=== PATIENT | female | born 1985 | race Caucasian/White ===

== ENCOUNTER 2017-04-30 23:05 | Emergency (ER) | payer OTHER ==
[~2017-04-30] VITALS: Ht 172.7 cm; Wt 88.8 kg
[~2017-04-30 23:05] MED LIST: ANAPROX DS550 M1 PO; AUGMENTIN875 MG PO; BACTRIM,SEPT1 TABLET PO; CARAFATE100 MG/ML PO; CATAPRES0.1 MG PO; CATAPRES0.2 MG PO; DOXYCYCLINE HY100 MG PO; HYDROCODON-ACE1 EAC7 PO; Habitrol,Nicoderm CQ TD; IMODIUM A-D2 MG PO; LEXAPRO10 MG; LEXAPRO10 MG PO; METHADONE HCL40 MG PO; MOTRIN600 MG PO; MOTRIN800 MG PO; NAPROSYN500 MG PO; NAPROXEN500 MG PO; NITROFURANTOIN100 MG PO; NORCO 5/3251 TABLET PO; PAROXETINE HCL10 MG PO; PEN-VEE K,VEET500 MG PO; PERCOCET 5-3251 EACH PO; PROZAC40 MG PO; ROBITUSSIN AC,T10 ML PO; TAMIFLU75 MG PO; TRAMADOL HCL50 MG PO; TRAZODONE HCL150 MG PO; XANAX0.25 MG PO; Xanax PO; ZITHROMAX Z-PA250 MG PO; ZOFRAN4 MG PO
[2017-05-01 00:14] LABS: HEMATOCRIT 40.1 % (36.0-46.0); MCH 27.8 PG (29.0-34.0); MCHC 32.7 G/DL (30.0-36.0); MEAN PLAT.VOLUME 10.1 uM^3 (9.5-12.4); PLATELET COUNT 170 K/uL (156-360); RBC DIS.WIDTH-CV 13.8 % (11.8-14.6); RBC DIS.WIDTH-SD 42.7 % (39-53); RED BLOOD COUNT 4.72 M/uL (3.80-5.20); WHITE BLOOD COUNT 7.2 K/uL (4.1-10.2)
[2017-05-01 00:22] LABS: CHLORIDE 105 mEq/L (99-109); SODIUM 139 mEq/L (136-147)
[2017-05-01 00:24] LABS: GLUCOSE 130 mg/dL (70-99)
[2017-05-01 00:25] LABS: ANION GAP 12 MEQ/L (2-14)
[2017-05-01 00:26] LABS: TOTAL BILIRUBIN 0.8 mg/dL (0.0-1.0)
[2017-05-01 00:28] LABS: ALKALINE PHOSPHATASE 97 IU/L (3-129); GFR ESTIMATE (CALCULATED) > 59 mL/min/
[2017-05-01 00:29] LABS: UREA NITROGEN (BUN) 6 mg/dL (9-23)
[2017-05-01] MEDS ORDERED: CLEOCIN300 MG PO (01:38)
[2017-05-01 01:41] LABS: QUANTITATIVE HCG < 4.0 MIU/ML
[2017-05-01 01:59] VITALS: BP 114/73
== END 2017-05-01 02:04 | disposition home or self-care (01) ==
LOC: EME 23:05
DX: L03.116 Cellulitis of left lower limb (principal); F31.9 Bipolar disorder, unspecified; F17.200 Nicotine dependence, unspecified, uncomplicated; Z88.5 Allergy status to narcotic agent; Z88.1 Allergy status to other antibiotic agents
CPT/HCPCS: 73590; 80053; 83605; 84702; 85027; 87070; 87075; 87076; 87077; 87147; 87186; 87205; 99281; 99285

== ENCOUNTER 2017-05-07 23:53 | Emergency (ER) | payer OTHER ==
[~2017-05-07] VITALS: Ht 167.6 cm; Wt 89.1 kg
[~2017-05-07 23:53] MED LIST changes: +CLEOCIN300 MG PO
[2017-05-08] MEDS ORDERED: BACTRIM,SEPT1 TABLET PO (01:53)
[2017-05-08 02:30] VITALS: BP 129/78
== END 2017-05-08 02:31 | disposition home or self-care (01) ==
LOC: EME 23:53
DX: L02.416 Cutaneous abscess of left lower limb (principal); F31.9 Bipolar disorder, unspecified; Z87.19 Personal history of other diseases of the digestive system; F17.200 Nicotine dependence, unspecified, uncomplicated; Z88.1 Allergy status to other antibiotic agents; Z88.5 Allergy status to narcotic agent
CPT/HCPCS: 99281; 99284

== ENCOUNTER 2017-07-06 11:51 | Emergency (ER) | payer OTHER ==
[~2017-07-06] VITALS: Ht 172.7 cm; Wt 86.6 kg
[2017-07-06 14:21] LABS: BASOPHIL (%) 0.3 % (0-1); EOSINOPHIL (%) 0.3 % (0-5); HEMATOCRIT 37.4 % (36.0-46.0); HEMOGLOBIN 12.7 G/DL (11.9-15.5); IMMATURE GRANULOCYTE (%) 0.3 % (0.0-0.7); LYMPHOCYTE (%) 16.4 % (15-42); LYMPHOCYTE COUNT 1.2 K/uL (1.0-2.8); MCH 29.1 PG (29.0-34.0); MCV 85.6 FL (83-99); MONOCYTE (%) 5.2 % (3-12); MONOCYTE COUNT 0.4 K/uL (0-0.8); NEUTROPHIL (%) 77.5 % (45-76); NEUTROPHIL COUNT 5.8 K/uL (1.8-6.4); PLATELET COUNT 168 K/uL (156-360); RBC DIS.WIDTH-CV 13.5 % (11.8-14.6); RBC DIS.WIDTH-SD 42.5 % (39-53); RED BLOOD COUNT 4.37 M/uL (3.80-5.20); WHITE BLOOD COUNT 7.5 K/uL (4.1-10.2)
[2017-07-06 14:35] LABS: ALBUMIN 3.9 g/dL (3.2-4.8)
[2017-07-06 14:36] LABS: CHLORIDE 107 mEq/L (99-109); POTASSIUM 3.6 mEq/L (3.7-5.4); SODIUM 137 mEq/L (136-147)
[2017-07-06 14:38] LABS: GLUCOSE 93 mg/dL (70-99); TOTAL PROTEIN 7.2 g/dL (6.4-8.3)
[2017-07-06 14:40] LABS: TOTAL BILIRUBIN 0.7 mg/dL (0.0-1.0)
[2017-07-06 14:41] LABS: ALKALINE PHOSPHATASE 121 IU/L (3-129)
[2017-07-06 14:42] LABS: CREATININE 0.6 mg/dL (0.6-1.3); GFR ESTIMATE (CALCULATED) > 59 mL/min/
[2017-07-06 14:43] LABS: AST (GOT) 13 IU/L (2-34); UREA NITROGEN (BUN) 6 mg/dL (9-23)
[2017-07-06 14:45] LABS: ALT (GPT) 12 IU/L (3-49)
[2017-07-06] MEDS ORDERED: CLEOCIN300 MG PO (16:28)
[2017-07-06 17:07] LABS: APPEARANCE CLEAR ((CLEAR)); BILIRUBIN NEGATIVE; BLOOD NEGATIVE; COLOR YELLOW ((YELLOW)); GLUCOSE (STRIP) NEGATIVE; KETONES 5; LEUKOCYTES SMALL; NITRITE NEGATIVE; PROTEIN (STRIP) NEGATIVE; UROBILINOGEN 0.2 MG/DL (0.2-1.0)
[2017-07-06 17:09] LABS: BACTERIA RARE /HPF; EPITHELIAL CELLS RARE /HPF; MUCUS TRACE /LPF; RED BLOOD CELLS 0-5 /HPF (0-5); UCUL ADDED? NO; WHITE BLOOD CELLS 0-5 /HPF (0-5)
[2017-07-06 17:31] VITALS: BP 120/60
[2017-07-06 17:34] LABS: AMPHETAMINE NEGATIVE (500 ng/mL); BARBITURATES NEGATIVE (200 ng/mL); BENZODIAZEPINES NEGATIVE (150 ng/mL); BUPRENORPHINE NEGATIVE (10 ng/mL); COCAINE PRESUMPTIVE POSITIVE (150 ng/mL); METHADONE NEGATIVE (200 ng/mL); METHAMPHETAMINE NEGATIVE (500 ng/mL); OPIATES (MORPHINE) NEGATIVE (100 ng/mL); OXYCODONE NEGATIVE (100 ng/mL); PHENCYCLIDINE NEGATIVE (25 ng/mL); PROPOXYPHENE NEGATIVE (300 ng/mL); THC CANNABINOIDS PRESUMPTIVE POSITIVE (50 ng/mL); TRICYCLIC ANTIDEPRESSANTS NEGATIVE (300 ng/mL)
[2017-07-06 17:56] LABS: SPECIFIC GRAVITY 1.064 (1.000-1.030)
== END 2017-07-06 17:43 | disposition home or self-care (01) ==
LOC: EME 11:51
PROVIDERS: Physician Assistant
DX: L03.114 Cellulitis of left upper limb (principal); L03.113 Cellulitis of right upper limb; F11.10 Opioid abuse, uncomplicated; F41.9 Anxiety disorder, unspecified; F17.200 Nicotine dependence, unspecified, uncomplicated; F31.9 Bipolar disorder, unspecified; Z88.8 Allergy status to other drugs, medicaments and biological substances
CPT/HCPCS: 73201; 80053; 81003; 83605; 84999; 85025; 87040; 99281; 99285; J1885; J7120

== ENCOUNTER 2017-07-17 06:42 | Emergency (ER) | payer OTHER ==
[~2017-07-17] VITALS: Ht 172.7 cm; Wt 87.1 kg
[2017-07-17 09:16] LABS: HEMATOCRIT 37.6 % (36.0-46.0); HEMOGLOBIN 12.6 G/DL (11.9-15.5); MCH 28.8 PG (29.0-34.0); MCHC 33.5 G/DL (30.0-36.0); MCV 85.8 FL (83-99); RBC DIS.WIDTH-SD 40.6 % (39-53); RED BLOOD COUNT 4.38 M/uL (3.80-5.20); WHITE BLOOD COUNT 6.7 K/uL (4.1-10.2)
[2017-07-17 09:20] LABS: PLATELET COUNT 295 K/uL (156-360)
[2017-07-17 09:25] LABS: ALBUMIN 3.6 g/dL (3.2-4.8); CHLORIDE 103 mEq/L (99-109)
[2017-07-17 09:26] LABS: POTASSIUM 3.2 mEq/L (3.7-5.4); SODIUM 140 mEq/L (136-147)
[2017-07-17 09:28] LABS: GLUCOSE 100 mg/dL (70-99); TOTAL PROTEIN 7.6 g/dL (6.4-8.3)
[2017-07-17 09:30] LABS: TOTAL BILIRUBIN 0.4 mg/dL (0.0-1.0)
[2017-07-17 09:31] LABS: ALKALINE PHOSPHATASE 288 IU/L (3-129); CREATININE 0.6 mg/dL (0.6-1.3); GFR ESTIMATE (CALCULATED) > 59 mL/min/
[2017-07-17 09:33] LABS: AST (GOT) 16 IU/L (2-34); UREA NITROGEN (BUN) 5 mg/dL (9-23)
[2017-07-17 09:34] LABS: ALT (GPT) 24 IU/L (3-49)
[2017-07-17 12:12] VITALS: BP 101/65
== END 2017-07-17 12:32 | disposition left against medical advice (07) ==
LOC: EME 06:42
PROVIDERS: Nurse Practitioner Family
DX: L02.413 Cutaneous abscess of right upper limb (principal); L02.512 Cutaneous abscess of left hand; B19.20 Unspecified viral hepatitis C without hepatic coma; Z53.29 Procedure and treatment not carried out because of patient's decision for other reasons; F17.200 Nicotine dependence, unspecified, uncomplicated; Z86.59 Personal history of other mental and behavioral disorders; Z90.49 Acquired absence of other specified parts of digestive tract; Z87.19 Personal history of other diseases of the digestive system; Z98.51 Tubal ligation status; Z88.1 Allergy status to other antibiotic agents; Z88.5 Allergy status to narcotic agent
CPT/HCPCS: 73130; 80053; 85027; 87040; 93005; 99281; 99285; J3010

== ENCOUNTER 2017-07-24 13:49 | Inpatient (IN) | payer OTHER ==
[~2017-07-24] VITALS: Ht 172.7 cm; Wt 89.6 kg
[2017-07-24 14:55] LABS: BASOPHIL (%) 0.3 % (0-1); BASOPHIL COUNT 0.1 K/uL (0-0.1); EOSINOPHIL (%) 0.1 % (0-5); HEMATOCRIT 40.5 % (36.0-46.0); HEMOGLOBIN 13.3 G/DL (11.9-15.5); IMMATURE GRANULOCYTE (%) 0.4 % (0.0-0.7); LYMPHOCYTE (%) 10.7 % (15-42); LYMPHOCYTE COUNT 1.7 K/uL (1.0-2.8); MCH 28.6 PG (29.0-34.0); MCHC 32.8 G/DL (30.0-36.0); MCV 87.1 FL (83-99); MONOCYTE (%) 3.8 % (3-12); MONOCYTE COUNT 0.6 K/uL (0-0.8); NEUTROPHIL (%) 84.7 % (45-76); NEUTROPHIL COUNT 13.4 K/uL (1.8-6.4); RBC DIS.WIDTH-CV 13.6 % (11.8-14.6); RBC DIS.WIDTH-SD 43.1 % (39-53); RED BLOOD COUNT 4.65 M/uL (3.80-5.20); WHITE BLOOD COUNT 15.8 K/uL (4.1-10.2)
[2017-07-24 14:57] LABS: ALBUMIN 3.7 g/dL (3.2-4.8); CHLORIDE 103 mEq/L (99-109); POTASSIUM 4.1 mEq/L (3.7-5.4); SODIUM 135 mEq/L (136-147)
[2017-07-24 14:59] LABS: GLUCOSE 103 mg/dL (70-99); TOTAL PROTEIN 6.9 g/dL (6.4-8.3)
[2017-07-24 15:01] LABS: TOTAL BILIRUBIN 0.8 mg/dL (0.0-1.0)
[2017-07-24 15:03] LABS: ALKALINE PHOSPHATASE 203 IU/L (3-129); CREATININE 0.6 mg/dL (0.6-1.3); GFR ESTIMATE (CALCULATED) > 59 mL/min/
[2017-07-24 15:04] LABS: UREA NITROGEN (BUN) 6 mg/dL (9-23)
[2017-07-24 15:05] LABS: AST (GOT) 25 IU/L (2-34)
[2017-07-24 15:06] LABS: ALT (GPT) 25 IU/L (3-49)
[2017-07-24 15:11] LABS: QUANTITATIVE HCG < 4.0 MIU/ML
[2017-07-24 15:56] LABS: PLAT.SUFFICIENCY ADEQUATE; PLATELET COUNT 249 K/uL (156-360)
[2017-07-24 22:15] VITALS: BP 100/54
[2017-07-24 23:33] VITALS: BP 109/58
[2017-07-25 03:05] VITALS: BP 107/55
[2017-07-25 07:37] VITALS: BP 110/62
[2017-07-25 07:53] LABS: HEMATOCRIT 34.2 % (36.0-46.0); MCH 28.9 PG (29.0-34.0); MCHC 32.2 G/DL (30.0-36.0); MCV 89.8 FL (83-99); PLATELET COUNT 184 K/uL (156-360); RBC DIS.WIDTH-CV 13.8 % (11.8-14.6); RBC DIS.WIDTH-SD 44.5 % (39-53); RED BLOOD COUNT 3.81 M/uL (3.80-5.20)
[2017-07-25 07:59] LABS: CHLORIDE 108 MEQ/L (99-109); CREATININE 0.4 MG/DL (0.6-1.3); GFR ESTIMATE (CALCULATED) > 59 mL/min/; GLUCOSE 109 mg/dL (70-99); POTASSIUM 3.8 MEQ/L (3.7-5.4); SODIUM 137 MEQ/L (136-147); UREA NITROGEN (BUN) 5 mg/dL (9-23)
[2017-07-25 10:48] VITALS: BP 100/55
[2017-07-25] MEDS ORDERED: ADVIL,NUPRIN,M200 MG PO (11:24)
[2017-07-25] MEDS ORDERED: TYLENOL EXTRA500 MG PO (11:24)
[2017-07-25 15:41] VITALS: BP 127/70
[2017-07-25 23:09] VITALS: BP 104/56
[2017-07-26 08:25] VITALS: BP 122/56
[2017-07-26 16:44] VITALS: BP 142/68
== END 2017-07-26 17:21 | disposition left against medical advice (07) | DRG 603 ==
LOC: EME 13:49 → 3EAST 15:09 → EDOF 15:09 → ENRESERV 15:53 → 3EAST 22:02
PROVIDERS: Emergency Medicine; Hospitalist; Internal Medicine
PROC: 0H9GXZZ Drainage of Left Hand Skin, External Approach (ICD-10-PCS; principal; 2017-07-24)
DX: L03.114 Cellulitis of left upper limb (principal); L02.512 Cutaneous abscess of left hand; L03.113 Cellulitis of right upper limb; F11.20 Opioid dependence, uncomplicated; B95.0 Streptococcus, group A, as the cause of diseases classified elsewhere; F14.90 Cocaine use, unspecified, uncomplicated; B18.2 Chronic viral hepatitis C; F17.200 Nicotine dependence, unspecified, uncomplicated; Z87.11 Personal history of peptic ulcer disease
CPT/HCPCS: 80048; 80053; 83605; 84702; 85025; 85027; 87040; 87070; 87075; 87077; 87186; 87205; 99281; 99285; J1170; J1650; J2540; J3370; J7030; J7050

== ENCOUNTER 2017-09-25 10:49 | Emergency (ER) | payer OTHER ==
[~2017-09-25] VITALS: Ht 170.2 cm; Wt 86.5 kg
[~2017-09-25 10:49] MED LIST changes: +ADVIL,NUPRIN,M200 MG PO; +TYLENOL EXTRA500 MG PO
[2017-09-25] MEDS ORDERED: PERCOCET 5/31 TABLET PO (12:11)
[2017-09-25] MEDS ORDERED: PEN-VEE K,VEET500 MG PO (12:11)
[2017-09-25 12:28] VITALS: BP 121/73
== END 2017-09-25 12:29 | disposition home or self-care (01) ==
LOC: EME 10:49 → RME 10:49
DX: K04.7 Periapical abscess without sinus (principal); K02.9 Dental caries, unspecified; F17.200 Nicotine dependence, unspecified, uncomplicated; F41.9 Anxiety disorder, unspecified; K21.9 Gastro-esophageal reflux disease without esophagitis; M79.7 Fibromyalgia; Z87.19 Personal history of other diseases of the digestive system
CPT/HCPCS: 99281; 99283

== ENCOUNTER 2018-01-27 13:24 | Emergency (ER) | payer OTHER ==
[~2018-01-27] VITALS: Ht 172.7 cm; Wt 90.9 kg
[~2018-01-27 13:24] MED LIST changes: +PERCOCET 5/31 TABLET PO
[2018-01-27 14:12] LABS: HEMATOCRIT 34.2 % (36.0-46.0); HEMOGLOBIN 11.4 G/DL (11.9-15.5); MCH 29.3 PG (29.0-34.0); MCHC 33.3 G/DL (30.0-36.0); MCV 87.9 FL (83-99); PLATELET COUNT 181 K/uL (156-360); RBC DIS.WIDTH-CV 14.5 % (11.8-14.6); RBC DIS.WIDTH-SD 46.8 % (39-53); RED BLOOD COUNT 3.89 M/uL (3.80-5.20); WHITE BLOOD COUNT 5.7 K/uL (4.1-10.2)
[2018-01-27 14:22] LABS: ALBUMIN 3.7 g/dL (3.2-4.8); CHLORIDE 102 mEq/L (99-109); POTASSIUM 3.1 mEq/L (3.7-5.4); SODIUM 137 mEq/L (136-147)
[2018-01-27 14:25] LABS: GLUCOSE 109 mg/dL (70-99); TOTAL PROTEIN 6.5 g/dL (6.4-8.3)
[2018-01-27 14:26] LABS: TOTAL BILIRUBIN 0.5 mg/dL (0.0-1.0)
[2018-01-27 14:26] LABS: APPEARANCE CLEAR ((CLEAR)); BILIRUBIN NEGATIVE; BLOOD NEGATIVE; COLOR YELLOW ((YELLOW)); GLUCOSE (STRIP) NEGATIVE; KETONES NEGATIVE; LEUKOCYTES SMALL; NITRITE POSITIVE; PROTEIN (STRIP) NEGATIVE; SPECIFIC GRAVITY 1.008 (1.000-1.030); UROBILINOGEN 0.2 MG/DL (0.2-1.0)
[2018-01-27 14:28] LABS: ALKALINE PHOSPHATASE 174 IU/L (3-129); CREATININE 0.6 mg/dL (0.6-1.3); GFR ESTIMATE (CALCULATED) > 59 mL/min/
[2018-01-27 14:29] LABS: UREA NITROGEN (BUN) 4 mg/dL (9-23)
[2018-01-27 14:30] LABS: AST (GOT) 25 IU/L (2-34)
[2018-01-27 14:31] LABS: ALT (GPT) 42 IU/L (3-49)
[2018-01-27 14:49] LABS: AMPHETAMINE NEGATIVE (500 ng/mL); BACTERIA 2+ /HPF; BARBITURATES NEGATIVE (200 ng/mL); BENZODIAZEPINES NEGATIVE (150 ng/mL); BUPRENORPHINE NEGATIVE (10 ng/mL); COCAINE PRESUMPTIVE POSITIVE (150 ng/mL); EPITHELIAL CELLS 1+ /HPF; METHADONE NEGATIVE (200 ng/mL); METHAMPHETAMINE NEGATIVE (500 ng/mL); MUCUS TRACE /LPF; OPIATES (MORPHINE) PRESUMPTIVE POSITIVE (100 ng/mL); OXYCODONE NEGATIVE (100 ng/mL); PHENCYCLIDINE NEGATIVE (25 ng/mL); PROPOXYPHENE NEGATIVE (300 ng/mL); RED BLOOD CELLS 0-5 /HPF (0-5); THC CANNABINOIDS PRESUMPTIVE POSITIVE (50 ng/mL); TRICYCLIC ANTIDEPRESSANTS NEGATIVE (300 ng/mL); UCUL ADDED? YES; WHITE BLOOD CELLS 0-5 /HPF (0-5)
[2018-01-27] MEDS ORDERED: BACTRIM,SEPT1 TABLET PO (16:57)
[2018-01-27 17:15] VITALS: BP 106/62
== END 2018-01-27 17:15 | disposition home or self-care (01) ==
LOC: EME 13:24
PROVIDERS: Nurse Practitioner Family
DX: L03.116 Cellulitis of left lower limb (principal); L03.115 Cellulitis of right lower limb; F14.90 Cocaine use, unspecified, uncomplicated; F19.10 Other psychoactive substance abuse, uncomplicated; R60.0 Localized edema; M79.7 Fibromyalgia; K21.9 Gastro-esophageal reflux disease without esophagitis; F31.9 Bipolar disorder, unspecified; F41.9 Anxiety disorder, unspecified; F17.200 Nicotine dependence, unspecified, uncomplicated; Z87.19 Personal history of other diseases of the digestive system; Z90.49 Acquired absence of other specified parts of digestive tract; Z88.1 Allergy status to other antibiotic agents; Z88.5 Allergy status to narcotic agent
CPT/HCPCS: 80053; 81003; 84999; 85027; 87077; 87086; 87186; 93970; 99281; 99284